=== PATIENT | male | born 1955 | race Caucasian/White ===

== ENCOUNTER → 2019-10-05 13:40 | Outpatient (CLI) | payer OTHER, SELFPAY ==
--- NOTE | 2019-10-05 13:47 | XR_ITS ---
PROCEDURE: XR CHEST 2V CLINICAL HISTORY: pre op exam Smoker COMPARISON: No exams were available for comparison FINDINGS: The cardiomediastinal silhouette and pulmonary vascularity are within normal limits. The lungs are clear without infiltrates, suspicious nodules, or pleural effusions. No acute bony abnormalities. IMPRESSION: No acute findings. Dictated by: Sebastian Negron MD 10/05/2019 17:47 Electronically signed by Sebastian Negron MD in [place] 10/05/2019 17:47
[2019-10-05 15:11] LABS: Basophils # 0.1 K/mm3 (0-0.2); Basophils % 0.5 % (0.1-2.0); Eosinophils # 0.1 K/mm3 (0.0-0.4); Eosinophils % 0.9 % (0.1-12.0); Hematocrit 46.5 % (42.0-52.0); Hemoglobin 14.7 g/dL (14.1-18.0); Lymphocytes % 17.7 % (10-50); Mean Corpuscular HGB Conc 31.6 g/dL (31.8-35.4); Mean Corpuscular Volume 91.8 fl (80-94); Mean Platelet Volume 8.3 fl (7.4-10.4); Monocytes # 0.8 K/mm3 (0.1-1.0); Neutrophils # 8.1 K/mm3 (1.8-7.8); Neutrophils % 73.9 % (37.0-80.0); Platelet Count 376 K/mm3 (142-424); Red Blood Count 5.06 M/mm3 (4.60-6.20); Red Cell Distribution Width 13.3 % (11.5-17.5)
[2019-10-05 16:30] LABS: Alanine Aminotransferase 15 U/L (12-78); Albumin Level 3.6 gm/dL (3.4-5.0); Albumin/Globulin Ratio 1.1 (1.1-1.8); Alkaline Phosphatase 107 U/L (46-116); Anion Gap 13.7 mEq/L (5-15); Aspartate Amino Transferase 10 U/L (15-37); Bilirubin,Total 0.5 mg/dL (0.2-1.0); Blood Urea Nitrogen 18 mg/dL (7-18); Carbon Dioxide 28 mmol/L (21.0-32.0); Chloride 103 mmol/L (98-107); Creatinine,Serum 1.15 mg/dL (0.70-1.30); Estimated Glomerular Filt Rate 64 ml/min (>60); GFR (African American) 77 ML/MIN (>60); Globulin 3.3 gm/dl (1.3-3.2); Glucose 87 mg/dL (74-106); Potassium 4.7 mmoL/L (3.5-5.1); Sodium 140 mmol/L (136-145); Total Protein,Serum 6.9 gm/dL (6.4-8.2)
== END ==
PROVIDERS: PCP Family Medicine; Visit Provider Orthopaedic Surgery
DX: Z01.818 Encounter for other preprocedural examination (principal); S82.831A Other fracture of upper and lower end of right fibula, initial encounter for closed fracture
CPT/HCPCS: 36415; 71046; 80053; 85025

== ENCOUNTER → 2019-10-12 13:47 | Outpatient (CLI) | payer OTHER, SELFPAY ==
--- NOTE | 2019-10-12 13:51 | XR_ITS ---
PROCEDURE: XR ANKLE RT MIN 3V CLINICAL INDICATION: Post OP: ORIF RT ankle Follow-up fracture COMPARISON: XR ANKLE RT MIN 3V from 09/28/2019 XR ANKLE RT 2V from 10/06/2019 FINDINGS: There is a bone plate at the distal fibula laterally with good alignment of the bony fragments. Otherwise negative IMPRESSION: Good alignment status post ORIF distal fibula Dictated by: Sebastian Negron MD 10/12/2019 16:56 Electronically signed by Sebastian Negron MD in [place] 10/12/2019 16:56
== END ==
PROVIDERS: PCP Family Medicine; Visit Provider Orthopaedic Surgery
DX: S82.831A Other fracture of upper and lower end of right fibula, initial encounter for closed fracture (principal)
CPT/HCPCS: 73610

== ENCOUNTER 2019-10-12 15:30 | Outpatient (RCR) | payer OTHER, SELFPAY | END 2019-10-12 15:50 | disposition home or self-care (01) | LOC: PT 15:30 | PROVIDERS: Visit Provider Orthopaedic Surgery | DX: S82.831A Other fracture of upper and lower end of right fibula, initial encounter for closed fracture (principal) | CPT/HCPCS: 97760 ==

== ENCOUNTER 2019-10-26 12:47 | Outpatient (RCR) | payer OTHER, SELFPAY ==
--- NOTE | 2019-10-26 14:39 | [facility].PTOPWND ---
Rehab Outpt Wound Evaluation Rehab OP Wound Evaluation Start: 10/26/19 14:31 Freq: Status: Active Protocol: Document 10/26/19 14:32 ANKIT (Rec: 10/26/19 14:38 PHORNE [id number]) Electronically Signed By David Monk, PT 10/26/19 14:32 Subjective/History History History Pt is 64 yowm who presents ~ 3 wks S/P right ankle ORIF S/P right fibula fx at work. He reports he twisted the ankle and later found out it was fractured. He now presents with delayed wound healing of his incision. He reports no significant PMH other than being a smoker. He is following his NWB precautions. Subjective Subjective Pt reports he has difficulty doing his dressing changes independently and has to get help from family to dress his wound at home. Wound Eval Wound Right Lateral Ankle Wound Type Incision Is This a Chronic Wound No Wound Length (cm) 8.0 Wound Width (cm) 1.0 Wound Bed Appearance Hanson,Yellow,Peeling Skin Wound Margins Description Well Defined Surrounding Tissue Appearance Hanson Edema Type Pitting Edema Degree 1+ Query Text:1+ Trace, Barely Detectable, Rebound 15-30 seconds 2+ Moderate, Slight Indentation, Rebound 10-20 seconds 3+ Deep, Deeper Indentation, Rebound > 30 seconds 4+ Very Deep, Rebound > 60 seconds Drainage Description None Drainage Amount None Wound Topical Solution/Irrigant Saline Irrigant Primary Dressing Composite Comment betadine, optifoam thin Wound Debridement Method Sharps,Forceps,Gauze Wound Debridement Amount of Tissue Minimal Removed Dressing Change Patient Tolerance Tolerated Well Wound Problems/Impairments Impairments Problems/Impairmments Palpation Tenderness,Impaired Range of Motion,Impaired Strength,Impaired Endurance, Impaired Gait Pattern,Impaired Walking,Impaired Standing, Impaired Shower/Bathing, Impaired Household Care, Increased Edema,Wound Care Needs,Subjective C/O Pain, Impa
== END 2019-10-26 12:50 | disposition home or self-care (01) ==
LOC: PT 12:47
PROVIDERS: Visit Provider Orthopaedic Surgery
DX: S82.831A Other fracture of upper and lower end of right fibula, initial encounter for closed fracture (principal)
CPT/HCPCS: 97162

== ENCOUNTER → 2019-11-09 13:11 | Outpatient (CLI) | payer OTHER, SELFPAY ==
--- NOTE | 2019-11-09 13:15 | XR_ITS ---
PROCEDURE: XR ANKLE RT MIN 3V CLINICAL INDICATION: Ankle FX Fu Follow-up fracture and surgery COMPARISON: XR ANKLE RT MIN 3V from 09/28/2019 XR ANKLE RT MIN 3V from 10/12/2019 FINDINGS: The splint has been removed. Lateral bone plate remains in place at the distal fibula with good alignment. Fracture line is barely visible. IMPRESSION: Good alignment healing fracture distal fibula Dictated by: Sebastian Negron MD 11/09/2019 13:42 Electronically signed by Sebastian Negron MD in [place] 11/09/2019 13:42
== END ==
PROVIDERS: PCP Family Medicine; Visit Provider Orthopaedic Surgery
DX: S82.831A Other fracture of upper and lower end of right fibula, initial encounter for closed fracture (principal)
CPT/HCPCS: 73610

== ENCOUNTER → 2019-12-11 13:14 | Outpatient (CLI) | payer OTHER, SELFPAY ==
--- NOTE | 2019-12-11 13:18 | XR_ITS ---
PROCEDURE: XR ANKLE RT MIN 3V CLINICAL INDICATION: ankle fracture Follow-up ankle fracture COMPARISON: XR ANKLE RT MIN 3V from 09/28/2019 XR ANKLE RT MIN 3V from 10/12/2019 XR ANKLE RT MIN 3V from 11/09/2019 FINDINGS: No change status post distal fibula with good alignment. Fracture line is still barely visible. The ankle mortise is preserved. There is diffuse osteopenia IMPRESSION: Good alignment status post ORIF distal fibular fracture Dictated by: Sebastian Negron MD 12/11/2019 14:45 Electronically signed by Sebastian Negron MD in [place] 12/11/2019 14:45
== END ==
PROVIDERS: PCP Family Medicine; Visit Provider Orthopaedic Surgery
DX: S82.831A Other fracture of upper and lower end of right fibula, initial encounter for closed fracture (principal)
CPT/HCPCS: 73610

== ENCOUNTER 2019-12-11 14:35 | Outpatient (RCR) | payer OTHER, SELFPAY | END 2019-12-11 15:00 | disposition home or self-care (01) | LOC: PT 14:35 | PROVIDERS: Visit Provider Orthopaedic Surgery | DX: S82.831A Other fracture of upper and lower end of right fibula, initial encounter for closed fracture (principal) | CPT/HCPCS: 97760 ==

== ENCOUNTER → 2020-01-08 13:11 | Outpatient (CLI) | payer OTHER, SELFPAY ==
--- NOTE | 2020-01-08 13:15 | XR_ITS ---
PROCEDURE: XR ANKLE RT MIN 3V CLINICAL INDICATION: fracture ankle Follow-up ORIF COMPARISON: XR ANKLE RT MIN 3V from 09/28/2019 XR ANKLE RT MIN 3V from 10/12/2019 XR ANKLE RT MIN 3V from 11/09/2019 FINDINGS: Status post ORIF distal fibula with lateral bone plate in place with good alignment and mild generalized periarticular osteopenia. Fracture line is barely visible. IMPRESSION: Good alignment distal fibular fracture status post ORIF Dictated by: Sebastian Negron MD 01/08/2020 15:12 Electronically signed by Sebastian Negron MD in [place] 01/08/2020 15:12
--- NOTE | 2020-01-08 14:35 | XR_ITS ---
PROCEDURE: XR KNEE RT 4V CLINICAL INDICATION: knee pain COMPARISON: No exams were available for comparison FINDINGS: No fracture or dislocation. No lytic or blastic change. There is normal mineralization. There are mild hypertrophic changes involving the anterior surface of the patella medially. There is slight decrease in the joint space medially. Other findings:None. IMPRESSION: Minimal osteoarthritic change Dictated by: Sebastian Negron MD 01/08/2020 15:04 Electronically signed by Sebastian Negron MD in [place] 01/08/2020 15:04
== END ==
PROVIDERS: PCP Family Medicine; Visit Provider Orthopaedic Surgery
DX: S82.831A Other fracture of upper and lower end of right fibula, initial encounter for closed fracture (principal)
CPT/HCPCS: 73564; 73610

== ENCOUNTER → 2020-02-15 14:02 | Outpatient (CLI) | payer OTHER, SELFPAY ==
--- NOTE | 2020-02-15 14:06 | XR_ITS ---
PROCEDURE: XR ANKLE WT BEARING RT MIN 3V CLINICAL INDICATION: sp ORIF RT ankle, dos 10/06/19 Follow-up surgery COMPARISON: XR ANKLE RT MIN 3V from 09/28/2019 XR ANKLE RT MIN 3V from 10/12/2019 XR ANKLE RT MIN 3V from 11/09/2019 XR ANKLE RT MIN 3V from 12/11/2019 XR ANKLE RT MIN 3V from 01/08/2020 XR KNEE RT 4V from 01/08/2020 FINDINGS: Lateral bone plate is present at the fibular region with diffuse osteopenia of the fibula and ankle and midfoot. Fracture line of the distal fibula once again noted. IMPRESSION: Good alignment status post ORIF distal fibular fracture with diffuse osteopenia Dictated by: Sebastian Negron MD 02/15/2020 15:09 Electronically signed by Sebastian Negron MD in [place] 02/15/2020 15:09
== END ==
PROVIDERS: PCP Family Medicine; Visit Provider Orthopaedic Surgery
DX: S82.831A Other fracture of upper and lower end of right fibula, initial encounter for closed fracture (principal); Z09 Encounter for follow-up examination after completed treatment for conditions other than malignant neoplasm
CPT/HCPCS: 73610

== ENCOUNTER → 2020-03-25 14:16 | Outpatient (CLI) | payer BC, SELFPAY ==
--- NOTE | 2020-03-25 14:20 | XR_ITS ---
PROCEDURE: XR ANKLE WT BEARING RT MIN 3V CLINICAL INDICATION: Rt ankle FX FU COMPARISON: XR ANKLE WT BEARING RT MIN 3V from 02/15/2020 FINDINGS: The lateral bone plate is again seen distal fibula. There is diffuse osteopenia of the distal fibula and talus probably involving the medial malleolus as well. There is blurring of the fracture line distal fibula when compared to the previous study from January consistent with a interval healing. The ankle mortise appears normal. IMPRESSION: Satisfactory ORIF distal fibular fracture with healing almost completed this time, some degree of disuse osteopenia is again noted Dictated by: Dr. Rafiq Parker MD 03/25/2020 14:[address] Rafiq Parker MD in [place] 03/25/2020 14:52
== END ==
PROVIDERS: PCP Family Medicine; Visit Provider Orthopaedic Surgery
DX: S82.831A Other fracture of upper and lower end of right fibula, initial encounter for closed fracture (principal)
CPT/HCPCS: 73610

== ENCOUNTER → 2020-05-26 16:13 | Outpatient (CLI) | payer OTHER, SELFPAY ==
--- NOTE | 2020-05-26 | XR_ITS ---
PROCEDURE: XR ANKLE WT BEARING RT MIN 3V CLINICAL INDICATION: Pain in right ankle and foot. Burning on plantar surface. COMPARISON: XR ANKLE RT MIN 3V from 12/11/2019 XR ANKLE RT MIN 3V from 01/08/2020 XR ANKLE WT BEARING RT MIN 3V from 02/15/2020 FINDINGS: Redemonstrated laterally a metallic plate along the distal fibula with small fixating screws. Fracture line is not visible. There is periarticular disuse bony demineralization. Mild degenerative arthrosis of the tibiotalar articulation. A very small subtle osteochondral lucent defect is again seen in the talar dome medially, similar to the prior exam. There is a small/moderate size plantar calcaneal spur is seen. No acute fracture or dislocation is demonstrated. There is also again demonstrated periarticular mild soft tissue edema and swelling. IMPRESSION: 1. Good healing/alignment, post ORIF distal fibular fracture. 2. Possible disuse periarticular bony demineralization. 3. Persistent periarticular mild/moderate soft tissue edema/swelling. Dictated by: Donna Bucio 05/26/2020 17:20 Electronically signed by Donna Bucio in [place] 05/26/2020 17:20
--- NOTE | 2020-05-26 | XR_ITS ---
PROCEDURE: XR FOOT WT BEARING RT 3V CLINICAL INDICATION: FALL ON 12 PAIN IN R ANKLE AND FOOT COMPARISON: No exams were available for comparison FINDINGS: There is an old healed fracture of the distal fibula status post ORIF. There is bony demineralization. Mild degenerative arthrosis of the tibiotalar articulation. Talar dome is intact. There is a small enthesophyte is seen posteriorly of the calcaneus at the insertion site of the Achilles tendon. Moderate-sized plantar calcaneal spur. The tarsal bones maintain anatomic alignment. Mild arthrosis of the Lisfranc articulation. Moderate osteoarthrosis of the MTP articulation of the hallux. Significant periarticular bony demineralization. No acute fracture or dislocation is identified. Other findings:There is possible minor soft tissue swelling of the right foot. IMPRESSION: 1. No acute findings. 2. Bony demineralization. 3. Os calcis spurring. Dictated by: Donna Bucio 05/26/2020 17:26 Electronically signed by Donna Bucio in [place] 05/26/2020 17:26
== END ==
PROVIDERS: PCP Physical Medicine & Rehabilitation; Visit Provider Physical Medicine & Rehabilitation
DX: M25.571 Pain in right ankle and joints of right foot (principal); M79.671 Pain in right foot
CPT/HCPCS: 73610; 73630